=== PATIENT | female | born 1965 | race Asian ===

== ENCOUNTER 2018-04-27 06:46 | Observation (INO) | payer OTHER ==
[2018-04-27] MEDS ORDERED: CEFAZOLIN 1 GM INJ (07:00)
[2018-04-27] MEDS ORDERED: LIDOCAINE 2% (SDV) 5 ML INJ (07:00)
[2018-04-27] MEDS ORDERED: NEOSTIGMINE 3 MG/3 ML SYRINGE (07:00)
[2018-04-27] MEDS ORDERED: GLYCOPYRROLATE 0.4 MG INJ (07:00)
[2018-04-27] MEDS ORDERED: DEXAMETHASONE 4 MG/ML 5 ML INJ (07:00)
[2018-04-27] MEDS ORDERED: PROPOFOL 20 ML ×2 (10:30→10:31)
[2018-04-27] MEDS ORDERED: MIDAZOLAM 1 MG/ML 2 ML INJ (10:30)
[2018-04-27] MEDS ORDERED: FENTAnyl 50 MCG/ML VIAL (10:30)
[2018-04-27] MEDS ORDERED: HYDROmorphONE 2 MG/ML SYG (10:48)
[2018-04-27] MEDS ORDERED: THROMBIN (BOVINE) 5,000 UNIT VIAL TP ×2 (11:44→14:45)
[2018-04-27] MEDS ORDERED: IPRATROPIUM (NEB) 0.5 MG/2.5 ML AMP HHN (12:00)
[2018-04-27] MEDS ORDERED: HYDROmorphONE 1 MG/5 ML IV SYRINGE IV (12:00)
[2018-04-27] MEDS ORDERED: MEPERIDINE 25 MG INJ IV (12:00)
[2018-04-27] MEDS ORDERED: hydrALAzine 20 MG INJ IV (12:00)
[2018-04-27] MEDS ORDERED: LEVALBUTEROL (NEB) 1.25 MG/0.5 ML AMP HHN (12:00)
[2018-04-27] MEDS ORDERED: FENTAnyl 50 MCG/ML VIAL IV ×2 (12:00)
[2018-04-27] MEDS ORDERED: LABETALOL HCL 20MG INJ IV (12:00)
[2018-04-27] MEDS ORDERED: SUCCINYLCHOLINE CHLORIDE 100 MG/5 ML SYG IV (12:10)
[2018-04-27] MEDS ORDERED: ROCURONIUM 50 MG INJ (12:10)
[2018-04-27] MEDS ORDERED: ONDANSETRON 4 MG INJ (12:10)
[2018-04-27] MEDS: BUPIVACAINE 0.5%/EPI (SDV) 30 ML INJ (12:58)
[2018-04-27] MEDS: THROMBIN 5000 UNIT VIAL TOP ×2 (13:25→14:49)
[2018-04-27] MEDS: HEMOSTATIC MATRIX SYG ZFS (13:46)
[2018-04-27] MEDS: GELATIN SIZE 100 SPONGE (14:48)
[2018-04-27] MEDS ORDERED: METOCLOPRAMIDE 10 MG INJ (15:10)
[2018-04-27] MEDS ORDERED: NACL 0.9% 3 ML SYG IV (15:30)
[2018-04-27] MEDS ORDERED: HYDROmorphONE 0.5 MG/0.5 ML SYG IV (15:30)
[2018-04-27] MEDS ORDERED: AL HYDROX/MG HYDROX/SIMETH 30 ML CUP PO (15:30)
[2018-04-27] MEDS ORDERED: ONDANSETRON 4 MG INJ IV (15:30)
[2018-04-27] MEDS ORDERED: HYDROCODONE/APAP (5/325) TAB PO (15:30)
[2018-04-27] MEDS ORDERED: PROCHLORPERAZINE 10 MG TAB PO (15:30)
[2018-04-27] MEDS ORDERED: ACETAMINOPHEN 325 MG TAB PO (15:30)
[2018-04-27] MEDS ORDERED: NALOXONE (0.4 MG/ML) INJ IV (15:30)
[2018-04-27] MEDS: HYDROmorphONE 1 MG/5 ML IV SYRINGE IV ×2 (15:44→15:50)
[2018-04-27] MEDS: ONDANSETRON 4 MG INJ IV (15:44)
[2018-04-27] MEDS: DIPHENHYDRAMINE 50 MG INJ IV (15:54)
[2018-04-27] MEDS: ACETAMINOPHEN 1000MG/100ML IV 100 ML IVPB (16:16)
[2018-04-27] MEDS: LACTATED RINGER'S 1,000 ML IV ×2 (18:10→22:48)
[2018-04-27] MEDS: CEFAZOLIN 1 GM/50 ML (PMX) 50 ML IVPB ×2 (18:15→23:50)
[2018-04-27] MEDS: ATORVASTATIN 40 MG TAB PO (21:21)
[2018-04-28 05:27] LABS: HEMATOCRIT 33.3 % (37.0-47.0)
[2018-04-28 05:46] LABS: ANION GAP 8 (5-13); BLOOD UREA NITROGEN 9 mg/dl (7-20); CALCIUM 9.2 mg/dl (8.4-10.2); CARBON DIOXIDE 27 mmol/L (21-31); CHLORIDE 105 mmol/L (97-110); CREATININE 0.54 mg/dl (0.44-1.00); Estimated GFR > 60 mL/min (>60); GLUCOSE 116 mg/dl (70-220); POTASSIUM 3.7 mmol/L (3.5-5.1); SODIUM 140 mmol/L (135-144)
[2018-04-28] MEDS: CEFAZOLIN 1 GM/50 ML (PMX) 50 ML IVPB ×2 (06:00→13:00)
[2018-04-28] MEDS: HYDROCODONE/APAP (5/325) TAB PO (08:51)
[2018-04-28] MEDS: DOCUSATE SODIUM 100 MG CAP PO (08:51)
== END 2018-04-28 16:00 | disposition home or self-care (01) ==
LOC: SDS 06:46 → REC 15:20 → MS1 17:29
DX: M48.062 Spinal stenosis, lumbar region with neurogenic claudication (principal); M51.16 Intervertebral disc disorders with radiculopathy, lumbar region; Z23 Encounter for immunization
CPT/HCPCS: 63030; 71045; 72100; 80048; 84703; 85014; 85018; 88304; 90686; 93005; 97116; 97162; 97530